=== PATIENT | male | born 1975 | race Caucasian/White ===

== ENCOUNTER 2022-03-18 10:28 | Emergency (ER) | payer SELFPAY ==
[2022-03-18 10:40] VITALS: BP 180/106; PULSE 88; RESP 20; TEMP 37.5; O2SAT 99
--- NOTE | 2022-03-18 10:45 | ED.WOUNDLAC ---
HPI - Wound/Laceration General Chief Complaint: Skin/Abscess/Foreign Body Stated Complaint: Skin Sore Time Seen by Provider: 03/18/22 10:46 Source: patient Mode of arrival: ambulatory Limitations: no limitations History of Present Illness HPI narrative: 46-year-old male presented for complaint of painful sore on the tailbone worsening over the last 2 days. he endorses a history of an abscess to this site about 1 year ago which broke open on its own at that time. States this feels similar. He has applied icy Hot to the site today. He currently denies nausea, vomiting, diarrhea, fevers or chills. Denies any other skin lesions. Related Data Allergies Allergy/AdvReac Type Severity Reaction Status Date / Time No Known Allergies Allergy Verified 03/18/22 10:46 Review of Systems Review of Systems: CONSTITUTIONAL: Denies body aches, fever, chills, or sweats. EYES: Denies visual changes, redness, or discharge. ENT: Denies rhinorrhea, congestion CARDIOVASCULAR: Denies chest pain, palpitations, or edema. RESPIRATORY: Denies cough or dyspnea. GASTROINTESTINAL: Denies abdominal pain, nausea, vomiting, or diarrhea. SKIN: Per HPI MUSCULOSKELETAL: Denies back pain, joint pain, or myalgia. NEUROLOGIC: Denies headache, numbness, tingling, or weakness. PMFSH Comments At time of signature, I have reviewed and agree with nursing past medical, surgical, social and family history unless otherwise noted. Please see nursing chart for further information. There is no relevant family history pertinent to the presenting complaint Exam Narrative: GENERAL: Well-appearing HEAD: Normocephalic, atraumatic. EYES: conjunctivae clear, and EOMI. ENT: Mucous membranes moist. Oropharynx without edema, erythema or lesions. NECK: Supple. No lymphadenopathy CHEST: Clear to auscultation. HEART: Regular rate and rhythm. SKIN: Warm, dry. Approx 2cm diameter abscess to coccyx/left buttock; tender and fluctuant without active drainage NEURO: Alert and oriented x3. Course Course Emergency Course: Patient is aware of diagnosis, understands and agrees to treatment plan. Anticipatory guidance given. Patient agrees to follow-up as directed and is aware of reasons to seek care at the emergency department. Portions of this record may have been created with voice recognition software Level of Care: Express Care Visit Vital Signs Vital signs: Reviewed Procedures Abscess I/D buttock: Date of Incision: 03/18/22 Local Anesthetic: lidocaine 1% Amount of anesthesia used (mL): 2 Technique: incised with #11 blade and probed loculations Irrigation: Yes Packing used?: plain I&D Results: Pus and Blood Abcess I&D Additional Comments: She site cleansed, incision made into the area of most fluctuance using 11 Blade. large amount of purulent material expressed, probed for loculations, irrigated, packing used. Patient tolerated well. MDM - Wound/Laceration MDM Narrative Medical decision making narrative: patient tolerated I and D. Wound culture sent. Patient to remove packing in 24 hours. Advised supportive measures and signs/symptoms to go to the ER. Pt is appropriate for outpt treatment and f/u. Differential Diagnosis Differential diagnosis: Likely abscess and other (cellulitis) Discharge Plan Discharge Clinical Impression: Abscess of skin or subcutaneous tissue Qualifiers: Site of cutaneous abscess: buttock Qualified Code(s): L02.31 - Cutaneous abscess of buttock Patient Disposition: Home, Self-Care Condition: Stable Additional Instructions: Your blood pressure reading was elevated (above 120/80) please follow-up with your primary care provider for further evaluation and management. You had an abscess drained today. You may shower [place] with warm soapy water Keep your wound covered while draining Warm compresses at least 4 times a day to the site to help expel any additiona
[2022-03-18 11:22] VITALS: BP 141/85
== END 2022-03-18 11:22 | disposition home or self-care (01) ==
PROVIDERS: Emergency Provider Nurse Practitioner Family
DX: L02.31 Cutaneous abscess of buttock (principal)
CPT/HCPCS: 10061; 87070; 87205; 99213; G0463